=== PATIENT | female | born 1995 | race Hispanic/Latino ===

== ENCOUNTER 2021-04-26 22:06 | Emergency (ER) | payer SELFPAY ==
[2021-04-26 22:57] VITALS: BP 144/88
[2021-04-26] MEDS ORDERED: ACETAMINOPHEN 500 MG TAB PO ONE (23:02)
[2021-04-26] MEDS ORDERED: IBUPROFEN 400 MG TAB PO ONE (23:02)
--- NOTE | 2021-04-26 23:04 | Emergency Department Report ---
ED Lower Extremity HPI - General Chief Complaint: Extremity Injury, Lower Stated Complaint: ANKLE PAIN Time Seen by Provider: 04/26/21 22:58 Source: patient, RN notes reviewed, old records reviewed Mode of arrival: Ambulatory Limitations: Physical Limitation - History of Present Illness Initial Comments: The patient was evaluated in the emergency department for symptoms described in the history of present illness. He/she was evaluated in the context of the global COVID-19 pandemic, which necessitated consideration that the patient might be at risk for infection with the virus that causes COVID-19. Institutional protocols and algorithms that pertain to the evaluation of patients at risk for COVID-19 are in a state of rapid change based on infor mation released by regulatory bodies including the CDC and federal and state organizations. These policies and algorithms were followed during the patient's care in the emergency department. Please note that these policies, procedures and recommendations changed on a rapid basis. The patient is a 25-year-old female who reports that she is not , who presents to the ER today with complaint of right lateral ankle pain, right lateral foot pain, after twisting her foot over the week. Patient is currently wearing flip-flops. Pain is sharp and throbbing, increases with palpation and decreases with rest. She denies additional injuries. She denies additional complaints. MD Complaint: ankle injury -: days(s) Injury: Ankle: Right, Foot: Right Type of Injury: blunt, inversion Place: home Severity: moderate Improves With: rest Worsens With: movement, palpation Associated Symptoms: swelling, able to partially bear weight - Related Data Previous Rx's Medication Instructions Recorded Last Taken Type Acetaminophen [Non-Aspirin Extra 500 mg PO Q6HR PRN #30 tablet 04/26/21 Unknown Rx Strength] Ibuprofen [Motrin] 400 mg PO Q6HR PRN #30 tablet 04/26/21 Unknown Rx Allergies Allergy/AdvReac Type Severity Reaction Status Date / Time Penicillins Allergy Unknown Verified 08/18/15 14:33 ED Review of Systems ROS: Stated complaint: ANKLE PAIN Other details as noted in HPI Musculoskeletal: joint swelling, arthralgia, myalgia Skin: change in color (Ecchymosis to right lateral ankle) ED Past Medical Hx - Past Medical History Previous Medical History?: Yes Hx Hypertension: Yes Additional medical history: Pre-Eclampsia - Surgical History Past Surgical History?: No - Social History Smoking Status: Never Smoker Substance Use Type: None - Medications Home Medications: Home Medications Medication Instructions Recorded Confirmed Last Taken Type Acetaminophen [Non-Aspirin Extra 500 mg PO Q6HR PRN #30 tablet 04/26/21 Unknown Rx Strength] Ibuprofen [Motrin] 400 mg PO Q6HR PRN #30 tablet 04/26/21 Unknown Rx ED Physical Exam - General Limitations: Physical Limitation General appearance: alert, in no apparent distress - Head Head exam: Present: atraumatic, normocephalic - Eye Eye exam: Present: normal appearance, EOMI. Absent: nystagmus - ENT ENT exam: Present: normal exam, normal orophraynx, mucous membranes moist, normal external ear exam - Neck Neck exam: Present: normal inspection, full ROM. Absent: tenderness, meningismus - Respiratory Respiratory exam: Present: normal lung sounds bilaterally. Absent: respiratory distress, wheezes, rales, rhonchi, stridor, decreased breath sounds - Cardiovascular Cardiovascular Exam: Present: regular rate, normal rhythm, normal heart sounds. Absent: bradycardia, tachycardia, irregular rhythm, systolic murmur, diastolic murmur, rubs, gallop - GI/Abdominal GI/Abdominal exam: Present: soft. Absent: distended, tenderness, guarding, rebound, rigid, pulsatile mass - Extremities Exam Extremities exam: Present: normal inspection, full ROM, tenderness (There is right lateral dorsal foot tenderness. There is right lateral ankle tenderness.), other (2+ pulses noted in the bilateral upper and lower extremities. Bilateral upper extremities and left lower extremity nontender. The pelvis is stable.). Absent: pedal edema, calf tenderness - Back Exam Back exam: Present: normal inspection. Absent: tenderness, CVA tenderness (R), CVA tenderness (L), paraspinal tenderness, vertebral tenderness - Neurological Exam Neurological exam: Present: alert, other (No facial droop. Tongue midline. Extraocular movements intact bilaterally. Facial sensation intact to light touch in V1, V2, V3 distribution bilaterally. 5 and a 5 strength in 4 extremities. Sensation intact to light touch in 4 extremities.). Absent: motor sensory deficit - Psychiatric Psychiatric exam: Present: anxious - Skin Skin exam: Present: warm, dry, intact, normal color, ecchymosis (Right lateral ankle ecchymosis). Absent: rash ED Course Vital Signs 04/26/21 04/26/21 22:53 23:24 Temperature 97.9 F Pulse Rate 73 Respiratory 18 14 Rate Blood Pressure 144/88 O2 Sat by Pulse 100 Oximetry ED Lower Extremity MDM - Lab Data Vital Signs 04/26/21 22:53 Temperature 97.9 F Pulse Rate 73 Respiratory 18 Rate Blood Pressure 144/88 O2 Sat by Pulse 100 Oximetry - Radiology Data Radiology results: report reviewed, image reviewed RIGHT ANKLE 3 VIEWS INDICATION / CLINICAL INFORMATION: Right ankle pain. COMPARISON: None available. FINDINGS: BONES / JOINT(S): No acute fracture or subluxation. No significant arthritis. SOFT TISSUES: No significant abnormality. ADDITIONAL FINDINGS: None. IMPRESSION: No acute abnormality. Signer Name: Abdi Millan MD Signed: 04/26/2021 10:30 PM Workstation Name: [id number] RIGHT FOOT 3 VIEWS INDICATION / CLINICAL INFORMATION: Right lateral foot pain. COMPARISON: None available. FINDINGS: BONES / JOINT(S): No acute fracture or subluxation. No significant arthritis. SOFT TISSUES: No significant abnormality. ADDITIONAL FINDINGS: None. IMPRESSION: No acute abnormality. Signer Name: Abdi Millan MD Signed: 04/26/2021 10:31 PM Workstation Name: [id number] - Medical Decision Making Differential diagnosis, including but not limited to: Sprain, strain, fracture, dislocation Assessment and plan: 25-year-old female status post right lateral ankle and right lateral foot injury approximately 4 to 5 days ago. X-ray showed no fracture or dislocation. She is tender. She is wearing flip-flops. Crutches, nonweightbearing, right ankle Aircast, rice therapy, alternate Tylenol and Motrin, counseled to follow-up with an outpatient primary care doctor, scrubber system attendant, orthopedist, will likely need physical therapy/rehabilitation, avoidance of slides/flip-flops, supportive footwear, outpatient follow-up. She is neurovascularly intact at this time Critical care attestation.: If time is entered above; I have spent that time in minutes in the direct care of this critically ill patient, excluding procedure time. ED Disposition Clinical Impression: Right foot pain Right ankle pain Qualifiers: Chronicity: acute Qualified Code(s): M25.571 - Pain in right ankle and joints of right foot Disposition: HOME / SELF CARE / HOMELESS Is pt being admited?: No Does the pt Need Aspirin: No Condition: Stable Instructions: Ankle Pain, Foot Pain Additional Instructions: Use the crutches as directed. Patient to remain nonweightbearing on the right ankle/foot, until cleared to bear weight by her primary care doctor, orthopedist or scrubber system attendant. Recommend follow-up with a primary care doctor or orthopedist or scrubber system attendant within the next 5 to 7 days. Recommend that patient not wear flip-flops or slides, and instead wear supportive footwear, such as cross trainers, tennis shoes, basketball shoes or athletic shoes. Keep the air splint in place. The patient may return to work in a few days as per her work excuse, but she should participate only in light duty. Patient is not cleared for full active duty, heavy lifting, strenuous physical activity. The patient may participate in clerical/computer related tasks. Patient may alternate the prescribed pain medications as needed and directed, and may also alternate ice packs and heat packs as needed for physical pain. Patient likely has sprain/strain of the ankle connective tissue tendons and ligaments. This may require physical therapy and rehabilitation. Your primary care doctor, orthopedist or scrubber system attendant can further direct you/instruct you. Please return to the emergency room right away with new pain, worsened pain, migration of pain, projectile vomiting, change in mental status, confusion, inability tolerate liquid feeds, new, worsened or different symptoms not present on the initial emergency room evaluation Prescriptions: Ibuprofen [Motrin] 400 mg PO Q6HR PRN #30 tablet PRN Reason: Pain , Severe (7-10) Acetaminophen [Non-Aspirin Extra Strength] 500 mg PO Q6HR PRN #30 tablet PRN Reason: Pain , Severe (7-10) Referrals: WANDA CHINCHILLA DPM [Staff Physician] - 3-5 Days HARSHA ESPINOZA MD [Staff Physician] - 3-5 Days [facility] [Provider Group] - 3-5 Days Forms: Work/School Release Form(ED)
--- NOTE | 2021-04-26 23:34 | XRay Report ---
RIGHT ANKLE 3 VIEWS INDICATION / CLINICAL INFORMATION: Right ankle pain. COMPARISON: None available. FINDINGS: BONES / JOINT(S): No acute fracture or subluxation. No significant arthritis. SOFT TISSUES: No significant abnormality. ADDITIONAL FINDINGS: None. IMPRESSION: No acute abnormality. Signer Name: Abdi Millan MD Signed: 04/26/2021 11:30 PM Workstation Name: [id number]
--- NOTE | 2021-04-26 23:36 | XRay Report ---
RIGHT FOOT 3 VIEWS INDICATION / CLINICAL INFORMATION: Right lateral foot pain. COMPARISON: None available. FINDINGS: BONES / JOINT(S): No acute fracture or subluxation. No significant arthritis. SOFT TISSUES: No significant abnormality. ADDITIONAL FINDINGS: None. IMPRESSION: No acute abnormality. Signer Name: Abdi Millan MD Signed: 04/26/2021 11:31 PM Workstation Name: [id number]
== END 2021-04-27 00:32 | disposition home or self-care (01) ==
LOC: ED 22:06
DX: M25.571 Pain in right ankle and joints of right foot (principal); M79.89 Other specified soft tissue disorders; I10 Essential (primary) hypertension
CPT/HCPCS: 99283